=== PATIENT | female | born 1965 | race Caucasian/White ===

== ENCOUNTER 2016-12-25 21:15 | Emergency (ER) | payer OTHER ==
[2016-12-25 22:16] LABS: BASOPHIL % 0.3 % (0-2); PLATELET COUNT 398 x10^3mcL (130-400); RED CELL DISTRIBUTION WIDTH 14.2 % (11.5-14.5)
[2016-12-25 22:17] LABS: CALCIUM 9.5 mg/dL (8.5-10.1); CREATININE SERUM 1.1 mg/dL (0.6-1.0); POTASSIUM SERUM 3.3 mmol/L (3.5-5.1)
[2016-12-25 22:22] LABS: BILIRUBIN TOTAL 0.5 mg/dL (0.20-1.00); TOTAL PROTEIN, SERUM 7.8 g/dL (6.4-8.2)
[2016-12-25 22:23] LABS: microscopic required? YES; urine erythrocyte 2+ (NEGATIVE)
[2016-12-26 00:14] VITALS: BP 109/69
== END 2016-12-26 00:14 | disposition home or self-care (01) ==
LOC: ED 21:15
PROVIDERS: Emergency Medicine
DX: N39.0 Urinary tract infection, site not specified (principal); E87.6 Hypokalemia
CPT/HCPCS: J2270; J2405; J7030